=== PATIENT | male | born 1945 | race Caucasian/White ===

== ENCOUNTER 2016-11-08 19:57 | Inpatient (IN) ==
[2016-11-08 20:45] LABS: MANUAL DIFF NEEDED? NO
[2016-11-08 20:53] LABS: URINE MICRO REVIEW NEEDED? NO; URINE SOURCE CLEAN CATCH
[2016-11-08 20:53] LABS: BASO% 0.3 % (0.0-0.8); EOS# 0.18 X1000 (0.0-0.7); EOS% 1.5 % (0.0-10.0); HEMATOCRIT 41.8 % (42.0-52.0); HEMOGLOBIN 14.9 g/dL (14.0-18.0); IMM GRAN# 0.07 X1000 (0.0-0.04); IMM GRAN% 0.6 % (0.0-0.5); LYMPH# 1.13 X1000 (1.2-3.4); LYMPH% 9.5 % (20.5-51.1); MCH 29.6 PG (27-31); MCHC 35.6 g/dL (33-37); MCV 83.1 FL (81-99); MONO# 0.79 X1000 (0.11-0.59); MONO% 6.7 % (1.7-9.3); MPV 11.3 FL (7.4-10.4); NEUT% 81.4 % (42.2-75.2); PLT 227 X1000 (130-400); RBC 5.03 XMIL (4.7-6.1)
[2016-11-08 20:58] LABS: BILIRUBIN URINE NEGATIVE (NEGATIVE); BLOOD URINE NEGATIVE (NEGATIVE); COLOR YELLOW; GLUCOSE URINE NEGATIVE (NEGATIVE); LEUKOCYTES URINE NEGATIVE (NEGATIVE); NITRITE URINE NEGATIVE (NEGATIVE); PH URINE 6.5; PROTEIN URINE NEGATIVE (NEGATIVE); SP GRAVITY URINE 1.009; TURBIDITY URINE CLEAR (CLEAR); UR EPITHELIAL CELLS <10 /HPF (<10); URINE BACTERIA NEGATIVE /HPF; URINE RBC <10 /HPF (<10); URINE WBC <10 /HPF (<10); UROBILINOGEN URINE NORMAL (NORMAL)
[2016-11-08 21:17] LABS: ALBUMIN 4.6 g/dL (3.5-5.0); CALCIUM 8.9 mg/dL (8.8-10.2); POTASSIUM 4.3 mmol/L (3.5-5.1); TOTAL BILIRUBIN 0.39 mg/dL (0.20-1.00); TOTAL PROTEIN 7.1 g/dL (6.3-8.3)
--- NOTE | 2016-11-08 21:58 | Diag Imaging Result Doc PS360 ---
EXAM: CT HEAD/C-SPINE W/O CONTRAST INDICATION: fall TECHNIQUE: Dose reduction protocol was used. COMPARISON: None. FINDINGS: Head: There is patchy low attenuation in the periventricular and subcortical white matter suggesting moderate microangiopathy. There is no definite acute infarct given the limited sensitivity of CT versus MRI. There is no discrete intracranial mass, mass effect, or intracranial hemorrhage. There is a right mastoid air cell effusion. Surrounding soft tissues and bony structures are grossly unremarkable, otherwise. C-spine: There is extremely severe multilevel degenerative disc disease and facet arthropathy. This is at virtually every cervical level. There is severe multilevel loss of disc space height and marginal osteophyte formation. The C6-7 level is fused. These degenerative changes are causing retrolisthesis of C3 on C4 with severe central stenosis and probable cord compression at this level. There is also multilevel neural foraminal stenosis that is severe at multiple levels, probably most significant at C3-4 on the left. These findings appear chronic, however. Otherwise, there is no discrete fracture or intrinsic osseous lesion. The surrounding soft tissues are essentially unremarkable. IMPRESSION: 1.Chronic appearing intracranial changes but no evidence of acute intracranial pathology. 2.Extremely severe multilevel degenerative disc disease and facet arthropathy with significant central canal and neuroforaminal stenosis at multiple levels, worst at C3-4. However, there is no definite fracture or other definite acute C-spine injury. Electronically signed by Sudhir Porter 11/08/2016 9:56 PM
--- NOTE | 2016-11-08 22:12 | Diag Imaging Result Doc PS360 ---
EXAM: FEMUR MIN 2 VIEWS LEFT INDICATION: fall TECHNIQUE: 4 views COMPARISON: None. FINDINGS: There has been a prior [id number] amputation on the left. There is an intertrochanteric fracture on the left that appears acute. There is mild displacement. There is no other discrete fracture, dislocation, or significant intrinsic osseous lesion. The surrounding soft tissues are essentially unremarkable. IMPRESSION: Intertrochanteric fracture of the left hip as described. Electronically signed by Sudhir Porter 11/08/2016 10:10 PM
[2016-11-08] MEDS ORDERED: TORADOL IV ONE (23:37)
--- NOTE | 2016-11-08 23:59 | PROVIDER DOCUMENTATION ---
This chart was entered by Payal Mccann Scribe, acting as scribe for Ron Valenzuela DO. HPI-Musculoskeletal Pain/Inj - GENERAL Chief Complaint: Fall Stated Complaint: extremity pain Time Seen by Provider: 11/08/16 20:48 Source: patient - HX OF PRESENT ILLNESS-MUSKULOSKELTAL Nature of Presenting Problem: Patient is a 71 year old male who presents in the ED with complaints of fall injuries. Patient states he fell out of his wheelchair at approximately 7:00 p.m. this evening, and states he hit the back of his head and the back of his left stump during his fall. He also states he has had left hip/thigh/posterior stump pain since the fall, and states he took three [place] 10mg prior to arrival in ED. History of hypertension and left above the knee amputation. Denies other symptoms. Quality of Pain: reports: aching Severity in ED: mild, moderate Onset/Duration: abrupt, 1-3 hours ago Timing: still present Modifying Factors: improves with: nothing Any recent injury?: Yes (fall) Locality of Occurance: Home Similar Symptoms Previously?: No Recently seen or treated by another doctor?: No - FALL INJURY Location of Pain/Injury: reports: head, lower extremity (left hip/thigh/stump) Pain Radiation: reports: no radiation Reason for Fall: reports: lost balance Symptoms prior to fall:: reports: none Loss of Consciousness: no loss of consciousness Injury Associated Symptoms: reports: other (hit head; left thigh/stump/hip pain) Review of Systems - Adult - REVIEW OF SYSTEMS - ADULT Constitutional: reports: no symptoms reported Eyes: reports: no symptoms reported Ears, Nose, Mouth & Throat: reports: no symptoms reported Cardiovascular: reports: no symptoms reported Respiratory: reports: no symptoms reported Gastrointestinal: reports: no symptoms reported Genitourinary: reports: no symptoms reported Musculoskeletal: reports: see HPI, other (left hip/thigh/stump pain) Integumentary: reports: no symptoms reported Neurological: reports: no symptoms reported Psychiatric: reports: no symptoms reported Endocrine: reports: no symptoms reported Hematologic/Lymphatic: reports: no symptoms reported Allergic/Immunologic: reports: no symptoms reported All Other Systems: Reviewed and Negative Past History - Adult - PAST MEDICAL HISTORY-ADULT Review of Records: reports: Nursing Assessment Review, Medications Reviewed Major Childhood Illnesses: reports: denies history Cardiovascular: reports: HTN Respiratory: reports: denies history Gastrointestinal: reports: denies history Obstetrical/Gynecological: reports: denies history Genitourinary: reports: prostate cancer Musculoskeletal: reports: denies history Neurological: reports: denies history Endocrine/Immune: reports: denies history Other Conditions: reports: denies history - PRIOR SURGERIES/PROCEDURES Surgical/Procedure History: reports: other (left AKA; prostate surgery) - IMMUNIZATION STATUS Childhood Immunizations: See Nurse Assessment Flu Vaccine: See Nurse Assessment - FAMILY HISTORY Family History: reviewed, not pertinent - SOCIAL HISTORY Smoking: denies Substance Use: none/never Alcohol Use Frequency: never Living Situation: family Physical Exam-Injury Related - Physical Exam-Injury Related Initial Vital Signs Reviewed: Yes General Appearance: alert, no apparent distress Immobilization?: negative: backboard, C-collar, applied in ED, applied [employer] Eyes: PERRL/EOMI, pink conjunctivae Head, Ears, Nose, Mouth & Throat: normocephalic/atraumatic, moist mucous membranes Neck: non-tender, full range of motion, supple, normal inspection Respiratory: chest non-tender, lungs clear, normal breath sounds, no pleuratic chest pain, no respiratory distress, no accessory muscle use Cardiovascular: regular rate, rhythm, no edema, no gallop, no JVD, no murmur Abdominal Exam: non tender, soft, no organomegaly, no pulsatile mass Lymphatic: no adenopathy Back Exam: normal inspection, no CVA tenderness, no vertebral tenderness Extremity: normal range of motion, non-tender, no pedal edema, other (left AKA) Integumentary: normal color, warm/dry Neurologic: grossly normal, no motor/sensory deficits Psych/Mental Status: normal mood/affect, oriented x 3 - Glascow Coma Score Best Eye Response (Makinen): (4) open spontaneously Best Verbal Response (Makinen): (5) oriented Best Motor Response (Makinen): (6) obeys commands Makinen Total: 15 Progress - PLAN OF CARE/RESULTS Progress/Plan/Lab Results: Vital Signs - 8 hr 11/08/16 19:57 Temperature 98.9 F Pulse Rate 81 Respiratory Rate 14 Blood Pressure 135/80 O2 Sat by Pulse Oximetry 97 Laboratory Results - last 24 hr 11/08/16 11/08/16 11/08/16 20:39 20:39 20:47 WBC 11.85 H RBC 5.03 Hgb 14.9 Hct 41.8 L MCV 83.1 MCH 29.6 MCHC 35.6 RDW Std Deviation 13.4 Plt Count 227 MPV 11.3 H Immature Gran % (Auto) 0.6 H Neut % (Auto) 81.4 H Lymph % (Auto) 9.5 L [place] % (Auto) 6.7 Eos % (Auto) 1.5 Baso % (Auto) 0.3 Immature Gran # (Auto) 0.07 H Neut # (Auto) 9.65 H Lymph # (Auto) 1.13 L [place] # (Auto) 0.79 H Eos # (Auto) 0.18 Baso # (Auto) 0.03 Sodium 134 L Potassium 4.3 Chloride 95 L Carbon Dioxide 25 Anion Gap 14 BUN 15 Creatinine 1.3 H Estimated GFR/1.73 m2 54 BUN/Creatinine Ratio 12 Glucose 204 H Calculated Osmolality 275 Calcium 8.9 Total Bilirubin 0.39 AST 21 ALT 22 Alkaline Phosphatase 91 Total Protein 7.1 Albumin 4.6 Globulin 2.5 Albumin/Globulin Ratio 1.8 Urine Source CLEAN CATCH Urine Color YELLOW Urine Turbidity CLEAR Urine pH 6.5 Ur Specific [place] 1.009 Urine Protein NEGATIVE Ur Glucose (Stick) NEGATIVE Ur Ketones (Stick) NEGATIVE Urine Blood NEGATIVE Urine Nitrite NEGATIVE Urine Bilirubin NEGATIVE Urobilinogen Dipstick NORMAL Urine Leukocytes NEGATIVE Urine WBC (Auto) <10 Urine RBC (Auto) <10 U Epithel Cells (Auto) <10 Urine Bacteria (Auto) NEGATIVE Orders Category Date Time Status CT HEAD/C-SPINE W/O CONTRAST [CT] Stat Exams 11/08/16 20:30 Completed FEMUR MIN 2 VIEWS LEFT [RAD] Stat Exams 11/08/16 20:30 Completed CBC WITH DIFF [HEME] Stat Lab 11/08/16 20:39 Completed COMPREHENSIVE METABOLIC PANEL [CHEM] Stat Lab 11/08/16 20:39 Completed URINALYSIS-1 [URINALYSIS] Stat Lab 11/08/16 20:47 Completed Ketorolac [Toradol] Med 11/08/16 23:37 Discontinued 30 mg IV NOW ONE Result Diagrams: 11/08/16 20:39 11/08/16 20:39 - REASSESSMENT Reassessment #1 Time Reassessed: 23:57 (SPOKE WITH ORTHOPEDIC SURGEON . ALSO SPOKE WITH HOSPITALIST WHO ACCEPTED THE ADMISSION. WILL KEEP THE PATIENT NPO POST MIDNIGHT TODAY FOR POSSIBLE SURGERY TOMORROW.) Departure - Departure Date of Disposition Decision: 11/08/16 Time of Disposition Decision: 23:59 DIAGNOSIS: Intertrochanteric fracture of left femur Qualifiers: Encounter type: initial encounter Fracture type: closed Fracture alignment: displaced Qualified Code(s): S72.142A - Displaced intertrochanteric fracture of left femur, initial encounter for closed fracture Disposition: ADMITTED INPATIENT Certified Medical Emergency: Emergent Condition: Stable Referrals and Follow-Ups: None,PCP [Primary Care Provider] - - Critical Care Note This patient required my direct & personal management of CC.: No Attestation - Physician/ ROLANDO Attestation Patient care was provided by Advanced Practice Provider:: No The physician spent face to face time with patient:: Yes Advanced Practice Provider documentation review:: Supervising physician onsite and consulted in the evaluation and care of this patient. The physician did have a face to face encounter with the patient. This chart was documented by the indicated scribe, (Payal Mccann Scribe) and accurately reflects the services I performed and decisions made by me, Ron Valenzuela DO, as attested by the provider's signature.
--- NOTE | 2016-11-09 00:38 | HISTORY AND PHYSICAL ---
PRIMARY CARE PHYSICIAN: Dr. Payan. CHIEF COMPLAINT: Status post fall. HISTORY OF PRESENTING ILLNESS: A 71-year-old male with a history of left AKA, hypertension and GERD had presented to emergency department after he fell while transferring on to his wheelchair. He states that he admits he misgauged where the position of the wheelchair was when he was trying to transfer and partially landed on the chair and then fell onto the floor. He developed moderate amount of pain on the left hip, is brought to the emergency department. He had imaging done which did show left hip intertrochanteric fracture. Due to his presenting symptoms, he will need admission for further management. At the time of my examination he had denied any headache, fever, chills, chest pain, shortness of breath, hemoptysis, complained of moderate amount of pain in the left hip. PAST MEDICAL HISTORY: Includes hypertension, GERD. PAST SURGICAL HISTORY: Left AKA. ALLERGIES: No known drug allergies. CURRENT MEDICATIONS: As in medication reconciliation. SOCIAL HISTORY: He is a former smoker. Quit about 25 years ago. Denies any history of alcohol or illicit drug use. FAMILY HISTORY: No history of coronary disease. REVIEW OF SYSTEMS: Twelve point review of systems is as in HPI. Other systems negative. PHYSICAL EXAMINATION: GENERAL: Cooperative, friendly male. He is resting comfortably now. VITAL SIGNS: Temperature 98.9 degrees, pulse 81, respirations 14, blood pressure 135/80. HEENT: Extraocular movements intact. PERRLA. NECK: No masses. CHEST: Clear to auscultation. CARDIOVASCULAR: Regular rate and rhythm. S1, S2. ABDOMEN: Soft. Positive bowel sounds. EXTREMITIES: Left hip tenderness. : No bladder distention. SKIN: Warm. LABORATORIES AND STUDIES: WBC 11.85, hemoglobin 14.9, hematocrit 41.8, platelets 227,000. Sodium 134, potassium 4.2, chloride 95, CO2 25, BUN is 15, creatinine 1.3, glucose 204. ASSESSMENT: A 71-year-old male with a history of hypertension, gastroesophageal reflux disease and left above-knee amputation who apparently fell while transferring on to his wheelchair and landed on the floor and developed moderate amount of pain in his left hip. He had imaging done in the emergency department which was consistent with left hip intertrochanteric fracture. Subsequently he will need admission for further management. ASSESSMENT: 1. Left hip intertrochanteric fracture. 2. Hypertension. 3. Gastroesophageal reflux disease. PLAN: 1. We will admit patient to medical floor with telemetry. 2. Continue supportive treatment with pain control, antiemetics. 3. Orthopedics has been consulted in emergency department already. 4. Keep NPO for right now. 5. Monitor blood pressure. Resume antihypertensive agent. 6. Resume his home medications. 7. We will hold his DVT prophylaxis in anticipation for his surgery right now. 8. We will continue to follow and reassess. cc: Jarred Haque MD
[2016-11-09] MEDS ORDERED: ZOFRAN IV PRN ×2 (00:44→14:18)
[2016-11-09] MEDS ORDERED: DILAUDID IV PRN (02:22)
[2016-11-09] MEDS: DILAUDID IV PRN ×5 (02:40→20:26)
[2016-11-09] MEDS ORDERED: PNEUMOVAX 23 IM ONE (04:00)
--- NOTE | 2016-11-09 07:51 | CONSULTATION ---
DATE OF CONSULTATION: 11/09/2016 CHIEF COMPLAINT: Left hip pain. HISTORY OF PRESENT ILLNESS: Mr. Rhoades is a 71-year-old male who unfortunately yesterday evening fell out of his wheelchair onto this left side. Ended up having a lot of hip pain. Ended up going to the ER later that evening where they diagnosed him with an intertrochanteric fracture. He was admitted per the hospitalist service and made NPO after midnight for possible surgery today. He had an AKA years ago from a work related incident back in 1992 and he occasionally will still use his leg. He has not been using it much over the summer because he says it has been very hot. PAST MEDICAL HISTORY: Hypertension, reflux. PAST SURGICAL HISTORY: Left [id number] amputation and recent right total knee replacement. ALLERGIES: No known drug allergies. CURRENT MEDICATIONS: Are per the MAR. SOCIAL HISTORY: He was a former smoker but nothing here recently and he denies any alcohol use. FAMILY HISTORY: Negative for any anesthesia related problems. REVIEW OF SYSTEMS: Positive for left hip pain. All other systems are essentially negative. PHYSICAL EXAMINATION: General: Well-developed, well-nourished male, in no acute distress. Head and Neck: Normocephalic, atraumatic. Respirations: Nonlabored. Cardiovascular: Regular rate. Abdomen: Nondistended. Extremities: Left lower extremity: He has tenderness to palpation to the left hip. The AK stump looks fine. I do not see any abrasions or skin problems with this. No tenderness palpation to the right side or bilateral upper extremities. He has good sensation to light touch of the stump. RADIOGRAPHS: Several views of the left femur from the hospital were reviewed, which shows an intertrochanteric fracture with a little bit of displacement. ASSESSMENT: Left intertrochanteric fracture. PLAN: I discussed with Mr. Rhoades about this fracture. I discussed with him about operative intervention as well especially since he gets up and uses this leg still occasionally, I would recommend surgical intervention which would be a short trochanteric femoral nail. If that nail was too short then we would have to do ORIF of left hip. But I think we can get a short troch nail down. I went over with him the procedure, risks, benefits, potential complications. Risks include, but are not limited to, infection, wound healing problems, damage to nerves, arteries, veins, numbness, malunion, nonunion, hardware related issues, continued pain, DVT and anesthesia related risks. After discussing these with the patient, he expressed understanding and wished to proceed so we will plan on getting this done today. He is NPO and then he will go on Lovenox postoperatively for DVT prophylaxis. cc: Willie Chakraborty MD
--- NOTE | 2016-11-09 10:54 | PROGRESS NOTE ---
DATE: 11/09/2016 SUBJECTIVE: Mr. Rhoades presented today early in the morning status post fall. He is a 71-year-old with a history of left AKA, history of hypertension, gastroesophageal reflux disease who presented to the emergency room. He was transferring from his wheelchair and he fell, struck his left hip, has a left hip fracture. PAST MEDICAL HISTORY: Hypertension, gastroesophageal reflux disease, left AKA. Dr. Chakraborty, I think, has assessed him and is planning on internal fixation. PHYSICAL EXAMINATION: General: He is awake and alert, comfortable. Vital signs: Temp 99.1, pulse 70, respirations 12, blood pressure 126/80. Lungs: Clear in all lung coe. Neck: CVP less than 6 cm. Cardiovascular: Regular rhythm and rate without murmur or S3. Abdomen: Soft. Skin: Warm and dry. LAB: Reviewed his labs. White count 11,850, hematocrit 41, platelet count 227,000. Sodium 134, potassium 4.3, chloride 95, BUN 15, creatinine 1.3. Liver functions unremarkable. Urinalysis unremarkable. RADIOLOGY: Femoral x-ray, left hip 4 views: Intertrochanteric fracture of the left hip. He has an [id number] amputation on the left, as well. ASSESSMENT AND PLAN: Hip fracture for repair. Did a head and cervical CT, and there are some chronic-appearing intracranial changes but no evidence of acute intracranial pathology. Extremely severe multilevel degenerative disk disease and facet arthropathy with significant central canal and neuroforaminal stenosis, multiple levels, at C3 and C4. However, there is no definite fracture. He does have what looks like some spinal stenosis. REVIEW OF HIS ORDERS: I do not see any change. He is on amitriptyline 75 mg at bedtime, Norvasc 10 mg a day, Lotensin 20 mg a day, getting Dilaudid 1 mg IV q.3-4 h., Bystolic 10 mg a day. He got Toradol 30 mg in the emergency room and Zofran p.r.n. nausea. cc: Charles Richardson MD
[2016-11-09] MEDS ORDERED: KEFZOL 2 GM/D5W 2 GM/50 ML IVPB ONE (11:37)
[2016-11-09] MEDS ORDERED: DIPRIVAN 1% ONE (11:38)
[2016-11-09] MEDS ORDERED: XYLOCAINE-MPF 2% ONE (11:38)
[2016-11-09] MEDS: BYSTOLIC PO SCH (11:41)
[2016-11-09] MEDS: LOTENSIN PO SCH (11:41)
[2016-11-09] MEDS: NORVASC PO SCH (11:42)
[2016-11-09] MEDS ORDERED: OFIRMEV 1000 MG/ISOTONIC SOLN 1,000 MG/100 ML BOTTLE ONE (11:54)
[2016-11-09] MEDS ORDERED: ZOFRAN ONE (11:54)
[2016-11-09] MEDS ORDERED: MORPHINE ONE (12:02)
--- NOTE | 2016-11-09 14:16 | OPERATIVE NOTE ---
PROCEDURE DATE: 11/09/2016 PREOPERATIVE DIAGNOSIS: Left intertrochanteric hip fracture. POSTOP DIAGNOSIS: Left intertrochanteric hip fracture. PROCEDURE: Left trochanteric femoral nailing. SURGEON: Dr. Willie Chakraborty. OUTBOUND SALES SPECIALIST: None. ANESTHESIA: General with LMA. ESTIMATED BLOOD LOSS: About 100 mL. IMPLANT: Synthes short trochanteric femoral nail size 11 with a helical blade and a distal interlocking screw. DISPOSITION: To PACU, hemodynamically stable. INDICATION FOR PROCEDURE: Mr. Lele Rhoades is a 71-year-old male, who presented to the emergency department yesterday for evaluation of his left hip after he fell out of his wheelchair. He was diagnosed with a hip fracture and was admitted per the hospitalist service, made n.p.o. after midnight. I saw him this morning. I discussed with him about surgical intervention. He expressed understanding and wished to proceed. DESCRIPTION OF PROCEDURE: Mr. Lele Rhoades was identified in the preoperative holding area. Left hip was marked as correct surgical site. He was then wheeled to the operating room, placed supine on the operating table. All bony prominences were well padded. He was induced under general anesthesia, LMA was placed. Left lower extremity was then prepped with chlorhexidine gluconate scrub and then ChloraPrep, and draped in normal sterile fashion. Surgical pause was performed. We identified the correct patient, correct side, and the correct procedure. Preop antibiotics were given which was 2 g IV Ancef. Started with the measuring tool to make sure that our short trochanteric femoral nail would fit since he had an [id number] amputation and it will. So we proceeded with TFN. I first put a Steinmann pin through the distal aspect of his stump. I made a small incision on the medial aspect. I bluntly dissected down with Hemostat and then I put a smooth Steinmann pin in so we could pull traction and a little bit internal rotation on that stump. After I did that and the fracture actually reduced really well, I then made a small incision proximally. I got my guidewire in and got it down in good position. I then drilled over it and then got my short miladis nail in. After it was in good position, I checked AP lateral views and that looked fine. I then placed my guidewire up the femoral neck into the head center- center, and that looked good on both AP and lateral views. I then drilled and then placed the helical blade up. I locked it into place proximally and then took off the helical blade jig. We then used the interlocking guide and placed 1 interlocking screw distally. Once that was done, I then took off the whole jig. Final images were taken which showed that we had a very good fracture reduction like we were out to length. All our implants looked good as well in both AP and lateral views. I then irrigated the mucosa with normal saline. The deep layer was closed with 0 Vicryl, 2-0 Vicryl for the subcutaneous everywhere and nylon on the skin. Adaptic, 4 x 4s, and Island dressings were placed. The patient was then awoken from general anesthesia, moved to his own bed and taken to the PACU in stable condition. Postoperatively, he will be weight bear as tolerated left lower extremity. He will be transferred back up to his room, and I will see him in the morning. cc: Willie Chakraborty MD
[2016-11-09] MEDS ORDERED: MORPHINE IV PRN ×2 (14:18)
[2016-11-09] MEDS ORDERED: MILK OF MAGNESIA PO PRN (14:18)
[2016-11-09] MEDS ORDERED: HALDOL IV PRN (14:18)
[2016-11-09] MEDS: TYLENOL PO SCH ×2 (15:17→22:52)
[2016-11-09] MEDS: OXY IR PO PRN ×2 (17:41→21:46)
[2016-11-09] MEDS ORDERED: NS 1,000 ML ONE (18:36)
[2016-11-09] MEDS: KEFZOL 1 GM/D5W 1 GM/50 ML IVPB IV SCH (18:50)
[2016-11-09] MEDS: PERIDEX MT SCH (20:24)
[2016-11-09] MEDS: COLACE PO SCH (20:25)
[2016-11-09] MEDS: ELAVIL PO SCH (20:25)
[2016-11-10] MEDS: DILAUDID IV PRN ×4 (00:51→22:58)
[2016-11-10] MEDS: TYLENOL PO SCH ×4 (00:53→20:51)
[2016-11-10] MEDS: OXY IR PO PRN ×5 (01:38→20:55)
[2016-11-10] MEDS: KEFZOL 1 GM/D5W 1 GM/50 ML IVPB IV SCH ×2 (04:45→11:55)
[2016-11-10] MEDS: LOVENOX SUBQ SCH ×2 (04:49→07:00)
[2016-11-10 06:06] LABS: HEMATOCRIT 34.9 % (42.0-52.0); HEMOGLOBIN 12.2 g/dL (14.0-18.0)
[2016-11-10 06:25] LABS: AGAP 12; BUN 14 mg/dL (8-22); CALCIUM 8.8 mg/dL (8.8-10.2); CHLORIDE 96 mmol/L (98-107); COSMO 278; POTASSIUM 4.5 mmol/L (3.5-5.1); SODIUM 136 mmol/L (136-145); TCO2 28 mmol/L (25-35)
--- NOTE | 2016-11-10 08:22 | PROGRESS NOTE ---
DATE: 11/10/2016 SUBJECTIVE: Mr. Rhoades is lying in bed this morning. Overall feeling better. OBJECTIVE: Left lower extremity exam: Dressings are all clean, dry, and intact. Not a lot of swelling to the leg overall. ASSESSMENT: Status post left trochanteric femoral nail for intertrochanteric fracture. PLAN: I am okay with Mr. Rhoades being up and active on this as much as he needs to be. He has not worn his prosthesis for a while but I am okay with him being up to chair, transferring, and if he wants to try to wear his prosthesis I would even be okay with that at this point. If everything looks good even tomorrow I would be okay with him being discharged as early as tomorrow. cc: Willie Chakraborty MD
[2016-11-10] MEDS: BYSTOLIC PO SCH (09:13)
[2016-11-10] MEDS: FERROUS SULFATE PO SCH (09:13)
[2016-11-10] MEDS: LOTENSIN PO SCH (09:13)
[2016-11-10] MEDS: NORVASC PO SCH (09:13)
[2016-11-10] MEDS: PERIDEX MT SCH ×2 (09:14→20:51)
--- NOTE | 2016-11-10 13:42 | PROGRESS NOTE ---
DATE: 11/10/2016 SUBJECTIVE: Mr. Rhoades is doing well. He was asking about when he can go home. I think the plan is to try and go home tomorrow but he is getting some phantom pain, but really not pain in the hip on the left side. OBJECTIVE: Vital Signs: Temperature 99.5 degrees, pulse 98, respirations 20, blood pressure 128/93. HEENT: Pupils are equal, round. Lungs: Clear in all lung coe. Cardiovascular: Regular rhythm and rate without murmur or S3. Abdomen: Soft. Skin: Warm and dry. Urine output 2200 mL. LABORATORY STUDIES: Hemoglobin is 12.2, hematocrit 34. ASSESSMENT AND PLAN: 1. Left hip trochanteric femoral nail for intertrochanteric fracture. Doing well. Continue physical therapy. He has not worn his prosthesis in a while but trying to and get him up in chair and transfer weight. Hopefully he can be discharged tomorrow. 2. Phantom pain. I asked me if anything helped him at home. He just has to take pain medicine when it happens. 3. Left above the knee amputation. 4. Blood pressure controlled. 5. Nutrition. He has got good p.o. intake. Bowels are moving by his report. I do not see any change. Blood pressure looks good. cc: Charles Richardson MD
[2016-11-10] MEDS: COLACE PO SCH (20:51)
[2016-11-10] MEDS: ELAVIL PO SCH (20:51)
[2016-11-11] MEDS: OXY IR PO PRN (00:56)
[2016-11-11] MEDS: TYLENOL PO SCH ×3 (03:54→08:01)
[2016-11-11] MEDS: DILAUDID IV PRN (04:52)
[2016-11-11] MEDS: LOVENOX SUBQ SCH ×2 (04:53→08:00)
[2016-11-11 05:50] LABS: HEMATOCRIT 34.1 % (42.0-52.0); HEMOGLOBIN 11.6 g/dL (14.0-18.0)
[2016-11-11 07:54] VITALS: BP 135/86
[2016-11-11] MEDS: FERROUS SULFATE PO SCH (08:56)
[2016-11-11] MEDS: PERIDEX MT SCH ×2 (08:56→08:59)
[2016-11-11] MEDS: LOTENSIN PO SCH (08:56)
[2016-11-11] MEDS: NORVASC PO SCH (08:56)
[2016-11-11] MEDS: BYSTOLIC PO SCH (08:56)
--- NOTE | 2016-11-11 10:49 | DISCHARGE SUMMARY ---
ADMISSION DATE: 11/09/2016 DISCHARGE DATE: 11/11/2016 HISTORY OF PRESENT ILLNESS: He is a patient of Dr. Stuart. He presented after a fall, getting out of his wheelchair. A 71-year-old with left above the knee amputation, hypertension, and gastroesophageal reflux disease. Presented to the emergency room after transfer from wheelchair. States that he misgauged the position of his wheelchair and fell on the floor, suffered a left femoral fracture. PAST MEDICAL HISTORY: Once again, hypertension, gastroesophageal reflux disease, status post left [id number] amputation from an injury from a crushing wound. HOSPITAL COURSE: Orthopedic was consulted. He remained hemodynamically stable. Went to surgery and Dr. Chakraborty performed surgery on 11/09/2016. He had left trochanteric femoral nailing. Tolerated the surgery well. He was having some phantom pain but otherwise unremarkable. He did have an acute blood loss anemia but hematocrit was stable at 34, hemoglobin 11. When he presented, his hematocrit was 41. We did put him on some iron. I felt he was ready go home. I think he wants to go home this morning so we will get him ready. DISCHARGE MEDICATIONS: He will be on his Lotensin 20 mg a day, Colace 200 mg at bedtime, ferrous sulfate 325 mg a day, oxycodone. I gave him prescription for OxyIR 5 mg. I gave him 40 of them and he can have 1 q.4 hours p.r.n. pain. Elavil 75 mg a day, Norvasc 10 mg a day. DISCHARGE INSTRUCTIONS: He will follow up with Dr. Payan, follow up with Dr. Chakraborty. Note, he reported a little bit of irritation around the wound but the wound was reported to look good. cc: Charles Richardson MD
--- NOTE | 2016-11-11 13:19 | PROGRESS NOTE ---
DATE: 11/11/2016 SUBJECTIVE DATA: Mr. Rhoades is lying comfortably in bed. Overall, he feels better. He states he has already been sitting on the side of the bed. OBJECTIVE DATA: Left lower extremity exam: Dressings are clean, dry, and intact. Not a whole lot of swelling to the leg overall. He has good movement at the hip. ASSESSMENT: Status post left trochanteric femoral nail for intertrochanteric fracture. PLAN: Mr. Rhoades can be up and on the leg as much as he needs to be. Apparently he has not been able to wear the prosthesis for a while but he can get up to the chair and transfer and even work on wearing his prosthesis again if he wants to. We are ready for him to be discharged at this point. We would like for him to follow up in clinic with Dr. Chakraborty in 2 weeks. Dictated by GINNA Bhatt for Willie Chakraborty MD cc: GINNA Bhtat MD
== END 2016-11-11 11:32 | disposition home health service (06) ==
LOC: ED 19:57 → 4N 11-09 00:06 → SUATTDRO 11-09 00:06
PROVIDERS: ATTEND Emergency Medicine